=== PATIENT | male | born 2005 | race Caucasian/White ===

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

== ENCOUNTER 2024-08-11 13:29 | Emergency (ER) | payer OTHER ==
[~2024-08-11] VITALS: Ht 182.9 cm; Wt 75.0 kg
[2024-08-11 13:42] VITALS: TEMP 98.3
[2024-08-11] MEDS ORDERED: levoFLOXacin 750 MG TAB PO ONE (14:30)
[2024-08-11] MEDS ORDERED: LEVAQUIN 750MG750 M1 PO (14:33)
[2024-08-11 14:43] VITALS: BP 124/74; PULSE 83
== END 2024-08-11 14:47 | disposition home or self-care (01) ==
LOC: COL.ER 13:29
DX: S61.452A Open bite of left hand, initial encounter (principal); L03.114 Cellulitis of left upper limb; Z88.0 Allergy status to penicillin; Z88.1 Allergy status to other antibiotic agents; W55.01XA Bitten by cat, initial encounter